=== PATIENT | male | born 1950 | race Two or more races ===

== ENCOUNTER 2025-05-15 18:06 | Inpatient (IN) | payer MEDICARE, OTHER ==
[~2025-05-15] VITALS: Ht 182.9 cm; Wt 88.0 kg
[2025-05-15 18:44] LABS: PLATELET COUNT (AUTO) 201 K/uL (150-450); RED BLOOD CELL COUNT(AUTO) 5.36 MIL/uL (4.5-6.0); RED CELL DISTRIBUTION WIDTH 14.0 % (11.5-15.0); WHITE BLOOD COUNT (AUTO) 10.5 K/uL (4.3-11.0)
[2025-05-15 18:53] LABS: CALCIUM, SERUM 9.5 mg/dL (8.5-10.1); CREATININE 1.5 mg/dL (0.6-1.3); SODIUM SERUM 143 mmol/L (136-145); UREA NITROGEN, BLOOD 9 mg/dL (7-18)
[2025-05-15] MEDS: ASPIRIN 81 MG TAB.CHEW PO ONE (19:38)
[2025-05-15] MEDS ORDERED: MAG HYDROX/AL HYDROX/SIMETH 30 ML UDC PO PRN (20:30)
[2025-05-15] MEDS ORDERED: ACETAMINOPHEN 325 MG TABLET PO PRN (20:30)
[2025-05-15] MEDS ORDERED: Z GUARD REMEDY 4 OZ OINT TP PRN (20:30)
[2025-05-15] MEDS ORDERED: MAGNESIUM HYDROXIDE 30 ML UDC PO PRN (20:30)
[2025-05-15] MEDS ORDERED: ENOXAPARIN SODIUM 40 MG/0.4 ML DISP.SYRIN SQ SCH (20:30)
[2025-05-15] MEDS ORDERED: ONDANSETRON HCL/PF 4 MG/2 ML VIAL IVP PRN (20:30)
[2025-05-15] MEDS ORDERED: MAG HYDROX/AL HYDROX/SIMETH 30 ML UDC ONE (21:49)
[2025-05-15] MEDS ORDERED: ENOXAPARIN SODIUM 80 MG/0.8 ML DISP.SYRIN SQ ONE (21:49)
[2025-05-15] MEDS ORDERED: FAMOTIDINE/PF INJ 20 MG/2 ML VIAL IV ONE (21:49)
[2025-05-15] MEDS ORDERED: LIDOCAINE VISCOUS 2% UD 15 ML UDC ONE (21:50)
[2025-05-15] MEDS: FAMOTIDINE/PF INJ 20 MG/2 ML VIAL IV ONE (21:51)
[2025-05-15] MEDS: ENOXAPARIN SODIUM 80 MG/0.8 ML DISP.SYRIN SQ ONE (21:51)
[2025-05-15] MEDS: MAG HYDROX/AL HYDROX/SIMETH 30 ML UDC PO ONE ×2 (21:51→22:00)
[2025-05-15] MEDS: LIDOCAINE VISCOUS 2% UD 15 ML UDC MM ONE (21:52)
[2025-05-15] MEDS: MORPHINE SULFATE INJ 2 MG/ML DISP.SYRIN IV ONE (22:03)
[2025-05-15] MEDS: hydrALAZINE HCL IV 20 MG VIAL IV PRN (22:28)
[2025-05-15 22:58] VITALS: BP 160/85
[2025-05-15] MEDS: IV NS 0.9% 1,000 ML IV PRN (23:21)
[2025-05-16] VITALS: BP 162/69; TEMP 98.1; O2SAT 100
[2025-05-16] MEDS ORDERED: LIDOCAINE VISCOUS 2% UD 15 ML UDC MM PRN (02:00)
[2025-05-16] MEDS: MAG HYDROX/AL HYDROX/SIMETH 30 ML UDC PO PRN (03:44)
[2025-05-16 04:00] VITALS: BP 160/78; TEMP 98.4; O2SAT 99
[2025-05-16 07:00] VITALS: BP 162/66; TEMP 99; O2SAT 98
[2025-05-16] MEDS: FAMOTIDINE (20 MG) 20 MG TABLET PO ONE (08:06)
[2025-05-16 08:19] LABS: PLATELET COUNT (AUTO) 202 K/uL (150-450); RED BLOOD CELL COUNT(AUTO) 5.05 MIL/uL (4.5-6.0); RED CELL DISTRIBUTION WIDTH 13.9 % (11.5-15.0); WHITE BLOOD COUNT (AUTO) 17.5 K/uL (4.3-11.0)
[2025-05-16 08:37] LABS: CALCIUM, SERUM 8.9 mg/dL (8.5-10.1); CREATININE 1.2 mg/dL (0.6-1.3); PHOSPHORUS 2.5 mg/dL (2.5-4.9); SODIUM SERUM 142.0 mmol/L (136-145); UREA NITROGEN, BLOOD 11.0 mg/dL (7-18)
[2025-05-16 08:51] LABS: LDL 107.0 mg/dL (0-99)
[2025-05-16] MEDS: METOPROLOL TARTRATE 25 MG TABLET PO SCH (09:40)
[2025-05-16] MEDS: AMLODIPINE BESYLATE 5 MG TABLET PO SCH (09:41)
[2025-05-16] MEDS: ASPIRIN 81 MG TAB.CHEW PO SCH (09:41)
[2025-05-16] MEDS ORDERED: LOSA50TA3 PO (09:59)
[2025-05-16] MEDS ORDERED: IOHEXOL-350 100 ML VIAL IV ONE (10:58)
[2025-05-16 12:37] LABS: ASPARTATE AMINOTRANSFERASE 37.0 U/L (15-37); TOTAL PROTEIN, SERUM 7.4 g/dL (6.4-8.2)
[2025-05-16 12:42] LABS: LACTIC ACID 1.9 mmol/L (0.4-2.0)
[2025-05-16 16:00] VITALS: BP 156/74; TEMP 99.5; O2SAT 97
[2025-05-16 20:00] VITALS: BP 138/58; TEMP 97.7; O2SAT 100
[2025-05-16] MEDS: ATORVASTATIN 40 MG TABLET PO SCH (21:17)
[2025-05-16] MEDS: ENOXAPARIN SODIUM 40 MG/0.4 ML DISP.SYRIN SQ SCH (21:23)
[2025-05-16 22:00] VITALS: BP 138/58; TEMP 99.5; O2SAT 100
[2025-05-17] VITALS: BP 139/67; TEMP 97.7; O2SAT 97
[2025-05-17 04:00] VITALS: BP 138/65; TEMP 98.1; O2SAT 95
[2025-05-17 08:00] VITALS: BP 143/58; TEMP 98.2; O2SAT 95
[2025-05-17 11:30] VITALS: BP 140/60; TEMP 98.1; O2SAT 97
[2025-05-17 11:57] LABS: PLATELET COUNT (AUTO) 175 K/uL (150-450); RED BLOOD CELL COUNT(AUTO) 4.64 MIL/uL (4.5-6.0); RED CELL DISTRIBUTION WIDTH 14.0 % (11.5-15.0); WHITE BLOOD COUNT (AUTO) 13.4 K/uL (4.3-11.0)
[2025-05-17 12:18] LABS: CALCIUM, SERUM 8.6 mg/dL (8.5-10.1); CREATININE 1.2 mg/dL (0.6-1.3); SODIUM SERUM 140.0 mmol/L (136-145); UREA NITROGEN, BLOOD 15.0 mg/dL (7-18)
[2025-05-17 12:24] LABS: ASPARTATE AMINOTRANSFERASE 35.0 U/L (15-37); TOTAL PROTEIN, SERUM 7.1 g/dL (6.4-8.2)
[2025-05-17 16:00] VITALS: BP 145/70; TEMP 98.2; O2SAT 96
[2025-05-17 21:16] VITALS: BP 150/76; TEMP 98; O2SAT 99
[2025-05-18] VITALS: BP 153/79; TEMP 97.9; O2SAT 97
[2025-05-18] MEDS ORDERED: CT SWABBABLE VALVE TRANS SET 1 EA INFUS.SET MC ONE (01:30)
[2025-05-18] MEDS ORDERED: IV NS 0.9% 250 ML IV ONE (01:30)
[2025-05-18] MEDS ORDERED: IOHEXOL-350 100 ML VIAL IV ONE (01:30)
[2025-05-18 04:00] VITALS: BP 115/72; TEMP 97.9; O2SAT 97
[2025-05-18 07:36] LABS: ASPARTATE AMINOTRANSFERASE 45.0 U/L (15-37); CALCIUM, SERUM 8.5 mg/dL (8.5-10.1); CREATININE 1.0 mg/dL (0.6-1.3); SODIUM SERUM 138.0 mmol/L (136-145); TOTAL PROTEIN, SERUM 7.1 g/dL (6.4-8.2); UREA NITROGEN, BLOOD 10.0 mg/dL (7-18)
[2025-05-18] MEDS ORDERED: ANESTHESIA TRAY IN PYXIS 1 EA TRAY MC ONE (07:41)
[2025-05-18 08:00] VITALS: BP 151/76; TEMP 97.7; O2SAT 98
[2025-05-18 08:01] LABS: INR 0.98 (0.91-1.10)
[2025-05-18 10:55] VITALS: BP 152/69; TEMP 97.9; O2SAT 97
[2025-05-18 16:00] VITALS: BP 148/73; TEMP 98.1; O2SAT 98
[2025-05-18 20:00] VITALS: BP 150/80; TEMP 98.4; O2SAT 97
[2025-05-19] MEDS ORDERED: LOSARTAN POTASSIUM 50 MG TABLET PO SCH (09:00)
== END 2025-05-18 22:45 | disposition short-term general hospital (02) | DRG 391 ==
LOC: ER 18:12 → TELE 21:40 → MED 05-18 13:56
PROVIDERS: ADMIT Nurse Practitioner Acute Care; ATTEND Internal Medicine
PROC: 0DJ08ZZ Inspection of Upper Intestinal Tract, Via Natural or Artificial Opening Endoscopic (ICD-10-PCS; principal; 2025-05-18 10:00)
DX: K22.2 Esophageal obstruction (principal); I21.A1 Myocardial infarction type 2; N17.0 Acute kidney failure with tubular necrosis; K21.9 Gastro-esophageal reflux disease without esophagitis; I16.0 Hypertensive urgency; K31.89 Other diseases of stomach and duodenum
CPT/HCPCS: 36415; 43235; 71045-TC; 71250-TC; 71260-TC; 75574; 80048-TC; 80053-TC; 80061-TC; 80076-TC; 83605-TC; 83690-TC; 83735-TC; 84100-TC; 84484-TC; 85025-TC; 85610-TC; 85730-TC; 86850-TC; 93307-TC; A4223; G0378; J0360; J1308; J1650; J2704; J3490; J7030; J7050; Q9967